=== PATIENT | male | born 1945 | race Caucasian/White ===

== ENCOUNTER 2020-09-02 13:10 | Emergency (ER) | payer MEDICARE, BC ==
[2020-09-02] MEDS ORDERED: Acetaminophen 325 MG Tab PO ONE (13:47)
--- NOTE | 2020-09-02 13:49 | EDM.PDOC ---
ED HPI GENERAL MEDICAL PROBLEM - General Chief Complaint: Respiratory Problem Stated Complaint: COUGH/CONGESTED/FEVER Time Seen by Provider: 09/02/20 13:36 Source of Information: Reports: Patient History Limitations: Reports: No Limitations - History of Present Illness INITIAL COMMENTS - FREE TEXT/NARRATIVE: 74-year-old male presents to the ED with a 2-day history of productive cough of slightly yellowish tinged mucus which he calls quite slimy. Associated fever chills and rigors yesterday afternoon and last evening. So far not today. Decreased appetite. Feels a little short of breath. Mostly on exertion. Associated fatigue and lack of energy. Patient did have COVID-19 screen vaccination [place] in March and April of this year. Of note the patient received his last dose of chemotherapy for a lymphoma or leukemia patient was not clear. He states the cancer was in his lymph nodes but in turn called it a leukemia. He has a Port-A-Cath in his right upper anterior chest. Patient had previous heart beam radiation to his prostate in 2012 for cancer of the prostate with PSA staying in the normal range. Patient still smokes cigarettes 3 to 5/day. He smoked for over 55 years. Denies any hemoptysis. He denies any pleuritic chest pain. Onset: Sudden Onset Date: 08/31/20 Duration: Day(s):, Constant, Getting Worse Location: Reports: Chest (Productive sounding cough.) Quality: Reports: Other (Mild generalized myalgia.) Severity: Moderate Improves with: Reports: None Worsens with: Reports: Other Context: Reports: Other (Spontaneous onset 2-1/2 days ago.). Denies: Activity, Exercise (Seems to be worse on exertion.), Lifting, Sick Contact, Trauma Associated Symptoms: Reports: Cough, cough w sputum (Yellowish sputum.), Fever/Chills (More noted yesterday), Loss of Appetite, Malaise (Creased appetite.), Shortness of Breath, Weakness (Generalized.). Denies: Confusion, Chest Pain, Diaphoresis, Headaches ( Fatigue.), Nausea/Vomiting, Rash, Seizure, Syncope Treatments K 12 PRINCIPAL: Reports: Acetaminophen - Related Data Allergies Allergy/AdvReac Type Severity Reaction Status Date / Time No Known Allergies Allergy Verified 02/21/15 14:53 Home Meds: Home Meds Calcium Carbonate [Calcium] 3 tab PO DAILY 02/28/15 [History] Loperamide HCl [Imodium A-D] 1 tab PO BID 02/28/15 [History] Lutein/Minerals/Vit A,C & E [Ocuvite] 1 tab PO DAILY 02/28/15 [History] Multivitamin with Minerals [Multiple Vitamin] 1 tab PO DAILY 02/28/15 [History] Primidone [Mysoline] 2 tab PO DAILY 02/28/15 [History] Propranolol [Inderal LA] 1 tab PO DAILY 02/28/15 [History] levoFLOXacin [Levaquin] 500 mg PO DAILY #7 tab 09/02/20 [Rx] Past Medical History Cardiovascular History: Reports: Hypertension Respiratory History: Reports: Bronchitis, Recurrent, COPD, Other (See Below) (Patient might of had pneumonia back in 1967.) Gastrointestinal History: Reports: Chronic Diarrhea (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 He was treated with heart beam radiation in 2012. This created urinary urgency and frequency and proctitis with chronic diarrhea.) Musculoskeletal History: Reports: Osteoarthritis (Knees hips L-spine neck.) Oncologic (Cancer) History: Reports: Leukemia (Patient is not sure if he has leukemia or non-Hodgkin's lymphoma which is being treated with chemotherapy. Last treatment was in May of this last year. He is due for oncology visit later this month.), Prostate (Prostate cancer diagnosed by way of TURP in 2012. He was treated with heart beam radiation. This left him with some urgency and urinary incontinence and radiation-induced proctitis.) - Past Surgical History Cardiovascular Surgical History: Reports: Other (See Below) (Port-A-Cath right upper anterior chest.) GI Surgical History: Reports: Other (See Below) (Patient underwent a right inguinal herniorrhaphy with mesh placement many years ago.) Social & Family History - Living Situation & Occupation Living situation: Reports: Occupation: Retired ED ROS GENERAL - Review of Systems Review Of Systems: See Below Constitutional: Reports: Fever, Chills, Malaise, Weakness, Fatigue, Decreased Appetite. Denies: Weight Loss HEENT: Reports: Glasses Respiratory: Reports: Shortness of Breath, Cough, Sputum. Denies: Wheezing, Pleuritic Chest Pain, Hemoptysis (Yellow sputum production for the last 2 days.) Cardiovascular: Reports: Blood Pressure Problem, Dyspnea on Exertion (Trace lower extremities chronically.), Edema. Denies: Chest Pain, Claudication, Lightheadedness, Orthopnea, Palpitations Endocrine: Reports: Fatigue GI/Abdominal: Reports: Diarrhea (History of chronic diarrhea usually 2-4 times daily since heart beam radiation to his prostate in 2013. Patient has radiation to his proctitis.), Decreased Appetite : Reports: Frequency, Incontinence (Occasional urge incontinence.), Urgency Musculoskeletal: Reports: Neck Pain, Shoulder Pain, Back Pain, Joint Pain (He is and hips at times from osteoarthritic change.) Skin: Reports: No Symptoms Neurological: Reports: No Symptoms Psychiatric: Reports: No Symptoms Hematologic/Lymphatic: Reports: No Symptoms Immunologic: Reports: No Symptoms ED EXAM, GENERAL - Physical Exam Exam: See Below Exam Limited By: No Limitations General Appearance: Alert, WD/WN, No Apparent Distress, Other (Patient does feel warm to palpation. Recorded temperature is 36.8 but he is warmer than this. Heart rate was 59 and sinus. Respiratory is 20 with O2 sats of 95% room air. BP 131/60.) Eye Exam: Bilateral Eye: Normal Inspection, PERRL Throat/Mouth: Normal Inspection, Normal Lips, Normal Teeth, Normal Oropharynx Head: Atraumatic, Normocephalic Neck: Normal Inspection, Supple, Non-Tender, Full Range of Motion. No: Lymphadenopathy (L), Lymphadenopathy (R) Respiratory/Chest: No Respiratory Distress, No Accessory Muscle Use, Decreased Breath Sounds (Mildly decreased at both posterior lung weeks by about 15%.), Rhonchi (Right lower lobe heard best posteriorly.), Wheezing (Very occasional expiratory wheeze on expiration.). No: Lungs Clear, Normal Breath Sounds, Rales Cardiovascular: Regular Rate, Rhythm, No Gallop, No Murmur, No Rub. No: Normal Peripheral Pulses, No Edema Peripheral Pulses: 2+: Carotid (L), Carotid (R), Posterior Tibial (L), Posterior Tibial (R), Dorsalis Pedis (L), Dorsalis Pedis (R) GI/Abdominal: Normal Bowel Sounds, Soft, Non-Tender, No Organomegaly, No Mass, Pelvis Stable, Distended (Mild. Mild aerophagia.), Other (Mildly tympany to percussion.) Back Exam: Normal Inspection, Decreased Range of Motion. No: CVA Tenderness (L), CVA Tenderness (R), Muscle Spasm, Paraspinal Tenderness, Vertebral Tenderness Extremities: Normal Inspection, Pedal Edema (Trace edema at the ankles bilaterally.) Neurological: Alert, Oriented, CN II-XII Intact, Normal Cognition Psychiatric: Normal Affect, Normal Mood Skin Exam: Warm, Dry, Intact, Normal Color, No Rash #1 Interpretation EKG Date: 09/02/20 Time: 14:31 Rhythm: Other Rate (Beats/Min): 58 [place]: LAD-Left [place] Deviation (Minimal left axis deviation -5 degrees) P-Wave: Present (First-degree AV block with left atrial hypertrophy) QRS: Other (Decreased voltage limb leads) ST-T: Normal QT: Normal EKG Interpretation Comments: Abnormal ECG Course - Vital Signs Last Recorded V/S: Last Vital Signs Temp 36.8 C 09/02/20 15:44 Pulse 56 L 09/02/20 15:44 Resp 18 09/02/20 15:44 BP 111/53 L 09/02/20 15:44 Pulse Ox 95 09/02/20 15:44 - Orders/Labs/Meds Orders: Active Orders 24 hr Category Date Time Status CULTURE BLOOD [BC] Stat Lab 09/02/20 14:15 Received CULTURE BLOOD [BC] Stat Lab 09/02/20 14:28 Received Blood Culture x2 Reflex Set [OM.PC] Stat Oth 09/02/20 13:48 Ordered Labs: Laboratory Tests 09/02/20 09/02/20 09/02/20 Range/Units 13:30 14:15 14:15 WBC 7.17 (4.23-9.07) K/mm3 RBC 4.05 L (4.63-6.08) M/mm3 Hgb 13.3 L (13.7-17.5) gm/dl Hct 39.6 L (40.1-51.0) % MCV 97.8 H (79.0-92.2) fl MCH 32.8 H (25.7-32.2) pg MCHC 33.6 (32.2-35.5) g/dl RDW Std Deviation 48.1 H (35.1-43.9) fL Plt Count 151 L (163-337) K/mm3 MPV 10.5 (9.4-12.3) fl Neutrophils % (Manual) 25 L (40-60) % Band Neutrophils % 1 (0-10) % Lymphocytes % (Manual) 43 H (20-40) % Atypical Lymphs % 3 % Monocytes % (Manual) 24 H (2-10) % Eosinophils % (Manual) 4 (0.8-7.0) % Basophils % (Manual) 0 L (0.2-1.2) Platelet Estimate Adequate RBC Morph Comment Normal PT (9.7-12.0) SECONDS INR APTT (21.7-31.4) SECONDS Sodium 140 (136-145) mEq/L Potassium 3.8 (3.5-5.1) mEq/L Chloride 103 (98-107) mEq/L Carbon Dioxide 25 (21-32) mEq/L Anion Gap 15.8 H (5-15) BUN 8 (7-18) mg/dL Creatinine 0.8 (0.7-1.3) mg/dL Est Cr Clr Drug Dosing 79.56 mL/min Estimated GFR (MDRD) > 60 (>60) mL/min BUN/Creatinine Ratio 10.0 L (14-18) Glucose 84 (70-99) mg/dL Lactic Acid (0.4-2.0) mmol/L Calcium 8.7 (8.5-10.1) mg/dL Magnesium 2.1 (1.8-2.4) mg/dL Total Bilirubin 0.6 (0.2-1.0) mg/dL AST 21 (15-37) U/L ALT 18 (16-63) U/L Alkaline Phosphatase 101 (46-116) U/L Troponin I < 0.017 (0.00-0.056) ng/mL C-Reactive Protein 17.7 H* (<1.0) mg/dL NT-Pro-B Natriuret Pep (0-125) pg/mL Total Protein 6.4 (6.4-8.2) g/dl Albumin 3.7 (3.4-5.0) g/dl Globulin 2.7 gm/dL Albumin/Globulin Ratio 1.4 (1-2) Urine Color (Yellow) Urine Appearance (Clear) Urine pH (5.0-8.0) Ur Specific [place] (1.005-1.030) Urine Protein (Negative) Urine Glucose (UA) (Negative) Urine Ketones (Negative) Urine Occult Blood (Negative) Urine Nitrite (Negative) Urine Bilirubin (Negative) Urine Urobilinogen (0.2-1.0) Ur Leukocyte Esterase (Negative) Urine RBC (0-5) /hpf Urine WBC (0-5) /hpf Ur Squamous Epith Cells (0-5) /hpf Urine Bacteria (FEW) /hpf Urine Mucus (FEW) /hpf SARS-CoV-2 RNA (LYRIC) Negative (NEGATIVE) 09/02/20 09/02/20 09/02/20 Range/Units 14:15 14:15 14:15 WBC (4.23-9.07) K/mm3 RBC (4.63-6.08) M/mm3 Hgb (13.7-17.5) gm/dl Hct (40.1-51.0) % MCV (79.0-92.2) fl MCH (25.7-32.2) pg MCHC (32.2-35.5) g/dl RDW Std Deviation (35.1-43.9) fL Plt Count (163-337) K/mm3 MPV (9.4-12.3) fl Neutrophils % (Manual) (40-60) % Band Neutrophils % (0-10) % Lymphocytes % (Manual) (20-40) % Atypical Lymphs % % Monocytes % (Manual) (2-10) % Eosinophils % (Manual) (0.8-7.0) % Basophils % (Manual) (0.2-1.2) Platelet Estimate RBC Morph Comment PT 11.0 (9.7-12.0) SECONDS INR 1.03 APTT 29.8 (21.7-31.4) SECONDS Sodium (136-145) mEq/L Potassium (3.5-5.1) mEq/L Chloride (98-107) mEq/L Carbon Dioxide (21-32) mEq/L Anion Gap (5-15) BUN (7-18) mg/dL Creatinine (0.7-1.3) mg/dL Est Cr Clr Drug Dosing mL/min Estimated GFR (MDRD) (>60) mL/min BUN/Creatinine Ratio (14-18) Glucose (70-99) mg/dL Lactic Acid 0.8 (0.4-2.0) mmol/L Calcium (8.5-10.1) mg/dL Magnesium (1.8-2.4) mg/dL Total Bilirubin (0.2-1.0) mg/dL AST (15-37) U/L ALT (16-63) U/L Alkaline Phosphatase (46-116) U/L Troponin I (0.00-0.056) ng/mL C-Reactive Protein (<1.0) mg/dL NT-Pro-B Natriuret Pep 708 H (0-125) pg/mL Total Protein (6.4-8.2) g/dl Albumin (3.4-5.0) g/dl Globulin gm/dL Albumin/Globulin Ratio (1-2) Urine Color (Yellow) Urine Appearance (Clear) Urine pH (5.0-8.0) Ur Specific [place] (1.005-1.030) Urine Protein (Negative) Urine Glucose (UA) (Negative) Urine Ketones (Negative) Urine Occult Blood (Negative) Urine Nitrite (Negative) Urine Bilirubin (Negative) Urine Urobilinogen (0.2-1.0) Ur Leukocyte Esterase (Negative) Urine RBC (0-5) /hpf Urine WBC (0-5) /hpf Ur Squamous Epith Cells (0-5) /hpf Urine Bacteria (FEW) /hpf Urine Mucus (FEW) /hpf SARS-CoV-2 RNA (LYRIC) (NEGATIVE) 09/02/20 Range/Units 14:35 WBC (4.23-9.07) K/mm3 RBC (4.63-6.08) M/mm3 Hgb (13.7-17.5) gm/dl Hct (40.1-51.0) % MCV (79.0-92.2) fl MCH (25.7-32.2) pg MCHC (32.2-35.5) g/dl RDW Std Deviation (35.1-43.9) fL Plt Count (163-337) K/mm3 MPV (9.4-12.3) fl Neutrophils % (Manual) (40-60) % Band Neutrophils % (0-10) % Lymphocytes % (Manual) (20-40) % Atypical Lymphs % % Monocytes % (Manual) (2-10) % Eosinophils % (Manual) (0.8-7.0) % Basophils % (Manual) (0.2-1.2) Platelet Estimate RBC Morph Comment PT (9.7-12.0) SECONDS INR APTT (21.7-31.4) SECONDS Sodium (136-145) mEq/L Potassium (3.5-5.1) mEq/L Chloride (98-107) mEq/L Carbon Dioxide (21-32) mEq/L Anion Gap (5-15) BUN (7-18) mg/dL Creatinine (0.7-1.3) mg/dL Est Cr Clr Drug Dosing mL/min Estimated GFR (MDRD) (>60) mL/min BUN/Creatinine Ratio (14-18) Glucose (70-99) mg/dL Lactic Acid (0.4-2.0) mmol/L Calcium (8.5-10.1) mg/dL Magnesium (1.8-2.4) mg/dL Total Bilirubin (0.2-1.0) mg/dL AST (15-37) U/L ALT (16-63) U/L Alkaline Phosphatase (46-116) U/L Troponin I (0.00-0.056) ng/mL C-Reactive Protein (<1.0) mg/dL NT-Pro-B Natriuret Pep (0-125) pg/mL Total Protein (6.4-8.2) g/dl Albumin (3.4-5.0) g/dl Globulin gm/dL Albumin/Globulin Ratio (1-2) Urine Color Yellow (Yellow) Urine Appearance Clear (Clear) Urine pH 7.0 (5.0-8.0) Ur Specific [place] 1.020 (1.005-1.030) Urine Protein Negative (Negative) Urine Glucose (UA) Negative (Negative) Urine Ketones Negative (Negative) Urine Occult Blood Negative (Negative) Urine Nitrite Negative (Negative) Urine Bilirubin Negative (Negative) Urine Urobilinogen 0.2 (0.2-1.0) Ur Leukocyte Esterase Negative (Negative) Urine RBC 0-5 (0-5) /hpf Urine WBC 0-5 (0-5) /hpf Ur Squamous Epith Cells 0-5 (0-5) /hpf Urine Bacteria Few (FEW) /hpf Urine Mucus Few (FEW) /hpf SARS-CoV-2 RNA (LYRIC) (NEGATIVE) Meds: Medications Discontinued Medications Generic Name Dose Route Start Last Admin Trade Name Freq PRN Reason Stop Dose Admin Acetaminophen 650 mg 09/02/20 13:47 09/02/20 14:31 Acetaminophen 325 Mg Tab PO 09/02/20 13:48 650 mg ONETIME ONE Administration Heparin Sodium (Porcine) 500 units 09/02/20 15:58 09/02/20 16:06 Heparin Sodium 100 Units/Ml 5 Ml Syringe FLUSH 500 units ASDIRECTED PRN Administration deaccess port Dextrose/Sodium Chloride 1,000 mls @ 150 mls/hr 09/02/20 14:00 09/02/20 14:31 Dextrose 5%-Normal Saline IV 150 mls/hr ASDIRECTED MANOJ Administration Ceftriaxone Sodium 2 gm/ 100 mls @ 200 mls/hr 09/02/20 14:48 09/02/20 14:56 Sodium Chloride IV 09/02/20 15:17 200 mls/hr ONETIME ONE Administration Levofloxacin 500 mg 09/02/20 15:53 09/02/20 16:03 Levofloxacin 250 Mg Tab PO 09/02/20 15:54 500 mg ONETIME ONE Administration - Radiology Interpretation Free Text/Narrative:: 74-year-old male presents to the ED for evaluation of acute onset of fever and chills with associated rigors yesterday x2. Productive cough with yellowish sputum x2 days. Associated mild shortness of breath and weakness. Patient had his Covid vaccination given in March and April of this year --a. Patient received last dose of chemotherapy/leukemia or lymphoma. Patient said leukemia but he said the cancer was in his lymph nodes. Therefore diagnosis is unclear. He is due for next oncology appointment later this month. At present he has a productive cough of yellowish sputum without any hemoptysis. He still smokes 3 to 5 cigarettes daily. Mild history of COPD but not oxygen dependent. Patient does have a fever clinically. Plan portable chest x-ray to be done. Covid screen will be done as well. Blood cultures x2. Will be given Tylenol 6 650 mg by mouth for fever relief. IV will be D5 normal saline at 150 mils per hour. - Re-Assessments/Exams Free Text/Narrative Re-Assessment/Exam: 09/02/20 14:47 White count is still normal at 7.17. Differential pending. Hemoglobin is 13.3 with hematocrit of 39.6. MCV is mildly elevated 97.8. Platelet count is low normal 151,000. COVID-19 screen is negative. Portable chest x-ray has been completed and reveals very mild cardiomegaly. Right pulmonary artery is mildly prominent. Lungs overall appear clear with perhaps minimal fibrosis right lower lobe. Port-A-Cath right upper anterior chest appreciated. I advised the patient that his chest x-ray was negative for any signs of pneumonia. Plan will be to give him 2 g of Rocephin intravenously. He has dropped his off with his son here in town and then they went to a dance. Therefore there is no one available to go to the drugstore while it is still open today. He prefers that I send the prescription to [facility] in [facility] and they usually mail out his medications. The plan will be to place him on Levaquin 500 mg once daily for 8 days with the first time to be taken tomorrow morning. 09/02/20 15:38 patient has completed Rocephin 2 g IV. Patient drove himself to the hospital and thus he will be discharged at this time. He plans on driving back to [place] this afternoon. I did speak with the pharmacist at [facility] in [place] outpatient pharmacy and we faxed a prescription for Lev aquin 500 mg once daily for 7 days to that institution. Discharged home with 1 Levaquin 500 mg tablet to take first thing tomorrow morning. Note radiology interpreted his chest x-ray is suggesting there might be a very minimal infiltrate right upper lobe above his Port-A-Cath. Departure - Departure Time of Disposition: 15:54 Disposition: Home, Self-Care 01 Condition: Fair Clinical Impression: Acute bronchitis Qualifiers: Bronchitis organism: other organism Qualified Code(s): J20.8 - Acute bronchitis due to other specified organisms - Discharge Information *PRESCRIPTION DRUG MONITORING PROGRAM REVIEWED*: Not Applicable *COPY OF PRESCRIPTION DRUG MONITORING REPORT IN PATIENT ANTHONY: Not Applicable Prescriptions: levoFLOXacin [Levaquin] 500 mg PO DAILY #7 tab Referrals: Vilma Mills MD [Primary Care Provider] - Forms: ED Department Discharge Additional Instructions: Evaluation in the emergency room today in regards to development of fever and chills with associated productive cough over the last 2 days. COVID-19 screen in the ED is negative. Chest x-ray done in the ED does not reveal any signs of pneumonia yet. Clinically you have bronchitis with suspect bacterial infection right lower lobe of lung. You were treated with first dose of antibiotic in the emergency room intravenously IV Rocephin 2 g. You will need to start oral antibiotic tomorrow Levaquin 500 mg once daily. A prescription has been sent to [facility] in [place] and they will put your medication in the mail tomorrow. Is unclear when you will get it but usually within 48 hours. You will need to take Levaquin 500 mg once daily for the next 7 days to clear up infection right lung. Of note do not take this medication with vitamins or your calcium supplement. Must be several hours in between taking these 2 together. Continue Motrin 600 mg every 6 hours or Tylenol 650 mg every 4 hours for fever relief. Return to medical care if condition worsens over the next 48 hours. Sepsis Event Note (ED) - Evaluation Sepsis Screening Result: No Definite Risk - Focused Exam Vital Signs: Vital Signs Temp Pulse Resp BP Pulse Ox 09/02/20 15:44 36.8 C 56 L 18 111/53 L 95 09/02/20 13:28 36.8 C 59 L 20 131/60 95 - My Orders Last 24 Hours: My Active Orders 09/02/20 13:48 Blood Culture x2 Reflex Set [OM.PC] Stat 09/02/20 14:15 CULTURE BLOOD [BC] Stat 09/02/20 14:28 CULTURE BLOOD [BC] Stat - Assessment/Plan Last 24 Hours: My Active Orders 09/02/20 13:48 Blood Culture x2 Reflex Set [OM.PC] Stat 09/02/20 14:15 CULTURE BLOOD [BC] Stat 09/02/20 14:28 CULTURE BLOOD [BC] Stat
[2020-09-02] MEDS ORDERED: Dextrose 5%-0.9% NaCl 1,000 ML IV SCH (14:00)
[2020-09-02] MEDS ORDERED: cefTRIAXone 2 GM in Sodium Chloride 0.9% 100 ML IV ONE (14:48)
--- NOTE | 2020-09-02 15:24 | CR ---
Chest: Portable view of the chest was obtained. Comparison: No previous study is available. Tubular density is seen within the right lung base believed to be artifact. Right-sided infusion catheter is seen with tip lying within the region of the superior vena cava. Slight area of increased density is seen within the right upper chest. Difficult to exclude minimal area of pneumonia. Lungs otherwise are clear. Bony structures are grossly intact. Impression: 1. Questionable small area of pneumonia is seen within the right upper chest. 2. Other findings as noted above which are felt to be chronic. Diagnostic code #3
[2020-09-02 15:49] VITALS: BP 111/53; PULSE 56
[2020-09-02] MEDS ORDERED: Levofloxacin 250 MG Tab PO ONE (15:53)
== END 2020-09-02 16:15 | disposition home or self-care (01) ==
LOC: JD.ED 13:10
DX: J20.8 Acute bronchitis due to other specified organisms (principal); I10 Essential (primary) hypertension; Z20.822 Contact with and (suspected) exposure to COVID-19; Z79.899 Other long term (current) drug therapy; R06.02 Shortness of breath
CPT/HCPCS: 36415; 71045; 80053; 81001; 83605; 83735; 83880; 84484; 85007; 85027; 85610; 85730; 86140; 87040; 93005; 96365; 99284; A9270; J0696; J1642; J7042; U0002; 93010; 99283

== ENCOUNTER 2022-02-07 09:18 | Inpatient (IN) | payer MEDICARE, BC ==
[2022-02-07] MEDS ORDERED: Lactated Ringers 1,000 ML IV ONE (10:12)
[2022-02-07] MEDS ORDERED: Piperacillin/Tazobactam 4.5 GM in Sodium Chloride 0.9% 100 ML IV ONE (10:12)
[2022-02-07] MEDS ORDERED: Sodium Chloride 0.9% 1,000 ML IV ONE (11:06)
[2022-02-07] MEDS ORDERED: Iopamidol 755 Mg/ML 100 ML Bottle IVPUSH ONE (11:34)
[2022-02-07] MEDS ORDERED: Sodium Chloride 0.9% 10 ML Syringe FLUSH ONE (11:34)
[2022-02-07] MEDS ORDERED: Sodium Chloride 0.9% 100 ML IV SCH (11:45)
[2022-02-07 17:00] LABS: CORONAVIRUS COVID-19 NAA NEGATIVE (NEGATIVE)
[2022-02-07] MEDS ORDERED: Zolpidem 5 MG Tab PO PRN (17:21)
[2022-02-07] MEDS ORDERED: Pantoprazole 40 MG Vial ONE (17:21)
[2022-02-07] MEDS ORDERED: LORazepam 2 MG/ML SDV IV PRN (17:21)
[2022-02-07] MEDS ORDERED: Dexamethasone 4 MG Tab PO SCH (17:30)
[2022-02-07] MEDS ORDERED: Pantoprazole 40 MG Vial IV ONE (17:45)
[2022-02-07] MEDS ORDERED: Furosemide 40 MG/4 ML VIAL IVPUSH SCH (17:45)
[2022-02-07] MEDS: Enoxaparin 40 MG/0.4 ML Syringe SUBCUT SCH (18:38)
[2022-02-07] MEDS ORDERED: Furosemide 20 MG/2 ML VIAL IVPUSH ONE (23:30)
[2022-02-08] MEDS: Loperamide 2 MG Cap PO SCH ×6 (04:56→21:39)
[2022-02-08] MEDS ORDERED: predniSONE 10 MG Tab PO SCH (07:00)
[2022-02-08] MEDS: Enoxaparin 40 MG/0.4 ML Syringe SUBCUT SCH (08:31)
[2022-02-08] MEDS: Acetaminophen 325 MG Tab PO PRN (08:40)
[2022-02-08] MEDS ORDERED: Nicotine 7 MG/24 Hr Patch TRDERM SCH (09:00)
[2022-02-08] MEDS: Piperacillin/Tazobactam 4.5 GM in Sodium Chloride 0.9% 100 ML IV SCH (17:49)
[2022-02-08] MEDS: Albuterol/Ipratropium 3.0-0.5 MG/3 ML Neb Soln NEB PRN ×2 (18:08→21:59)
[2022-02-08] MEDS: Furosemide 20 MG/2 ML VIAL IVPUSH SCH (21:39)
[2022-02-09] MEDS: Piperacillin/Tazobactam 4.5 GM in Sodium Chloride 0.9% 100 ML IV SCH ×4 (00:58→18:28)
[2022-02-09] MEDS ORDERED: Loperamide 2 MG Cap PO PRN (06:00)
[2022-02-09] MEDS: predniSONE 20 MG Tab PO SCH (07:03)
[2022-02-09] MEDS: Albuterol/Ipratropium 3.0-0.5 MG/3 ML Neb Soln NEB PRN ×3 (09:17→20:56)
[2022-02-09] MEDS: Propranolol 60 MG Cap.ER PO SCH (10:00)
[2022-02-09] MEDS: Furosemide 20 MG/2 ML VIAL IVPUSH SCH (10:01)
[2022-02-09] MEDS: Enoxaparin 40 MG/0.4 ML Syringe SUBCUT SCH (10:03)
[2022-02-09] MEDS: Loperamide 2 MG Cap PO SCH ×2 (14:13→21:57)
[2022-02-10] MEDS: Piperacillin/Tazobactam 4.5 GM in Sodium Chloride 0.9% 100 ML IV SCH ×3 (02:25→18:23)
[2022-02-10] MEDS: Albuterol/Ipratropium 3.0-0.5 MG/3 ML Neb Soln NEB PRN ×4 (06:27→20:57)
[2022-02-10] MEDS: predniSONE 20 MG Tab PO SCH (06:46)
[2022-02-10] MEDS: Loperamide 2 MG Cap PO SCH ×3 (06:46→22:00)
[2022-02-10] MEDS: Acetaminophen 325 MG Tab PO PRN (09:57)
[2022-02-10] MEDS: Propranolol 60 MG Cap.ER PO SCH (09:58)
[2022-02-10] MEDS: Enoxaparin 40 MG/0.4 ML Syringe SUBCUT SCH (09:58)
[2022-02-10] MEDS: Albuterol/Ipratropium 3.0-0.5 MG/3 ML Neb Soln NEB SCH (15:50)
[2022-02-10] MEDS ORDERED: Sodium Chloride 0.9% 1,000 ML IV SCH (18:15)
[2022-02-11] MEDS: Piperacillin/Tazobactam 4.5 GM in Sodium Chloride 0.9% 100 ML IV SCH ×3 (03:00→18:15)
[2022-02-11] MEDS: Albuterol/Ipratropium 3.0-0.5 MG/3 ML Neb Soln NEB PRN (05:53)
[2022-02-11] MEDS ORDERED: predniSONE 20 MG Tab PO SCH (07:00)
[2022-02-11] MEDS: Loperamide 2 MG Cap PO SCH ×3 (07:01→22:12)
[2022-02-11] MEDS ORDERED: Albuterol 0.083% 2.5 MG/3 ML Neb Soln NEB PRN (08:33)
[2022-02-11] MEDS ORDERED: Albuterol/Ipratropium 3.0-0.5 MG/3 ML Neb Soln NEB SCH (09:00)
[2022-02-11] MEDS: Enoxaparin 40 MG/0.4 ML Syringe SUBCUT SCH (09:06)
[2022-02-11] MEDS: Propranolol 60 MG Cap.ER PO SCH (09:06)
[2022-02-11] MEDS: Acetaminophen 325 MG Tab PO PRN ×2 (09:19→13:56)
[2022-02-11] MEDS ORDERED: VANCOmycin 1.25 GM/250 ML 1.25 GM in Premix Bag 1 BAG IV ONE (12:00)
[2022-02-11] MEDS ORDERED: Sodium Chloride 0.9% 250 ML IV ONE (12:30)
[2022-02-11] MEDS: methylPREDNISolone Sodium Succinate 40 MG/1 ML SDV IVPUSH SCH (12:44)
[2022-02-11] MEDS ORDERED: Sodium Chloride 0.9% 1,000 ML IV SCH (13:00)
[2022-02-11 13:46] LABS: BORDETELLA PARAPERT IS1001 Not Detected (Not Detected)
[2022-02-11] MEDS: Albuterol/Ipratropium 3.0-0.5 MG/3 ML Neb Soln NEB SCH ×2 (13:56→21:32)
[2022-02-12] MEDS: methylPREDNISolone Sodium Succinate 40 MG/1 ML SDV IVPUSH SCH ×3 (00:52→23:30)
[2022-02-12] MEDS: Piperacillin/Tazobactam 4.5 GM in Sodium Chloride 0.9% 100 ML IV SCH ×3 (02:20→18:24)
[2022-02-12] MEDS: Albuterol/Ipratropium 3.0-0.5 MG/3 ML Neb Soln NEB SCH ×3 (04:59→20:46)
[2022-02-12] MEDS: Loperamide 2 MG Cap PO SCH ×3 (06:22→23:30)
[2022-02-12] MEDS: VANCOmycin 1.25 GM/250 ML 1.25 GM in Premix Bag 1 BAG IV SCH (07:49)
[2022-02-12] MEDS: Propranolol 60 MG Cap.ER PO SCH (09:40)
[2022-02-12] MEDS: Enoxaparin 40 MG/0.4 ML Syringe SUBCUT SCH (09:41)
[2022-02-12] MEDS ORDERED: Furosemide 20 MG/2 ML VIAL IVPUSH ONE (10:03)
[2022-02-12] MEDS: Potassium Chloride 20 MEQ Tab.ER PO SCH ×2 (12:15→23:30)
[2022-02-13] MEDS: VANCOmycin 1.25 GM/250 ML 1.25 GM in Premix Bag 1 BAG IV SCH (00:35)
[2022-02-13] MEDS: Piperacillin/Tazobactam 4.5 GM in Sodium Chloride 0.9% 100 ML IV SCH ×3 (02:14→18:52)
[2022-02-13] MEDS: Albuterol/Ipratropium 3.0-0.5 MG/3 ML Neb Soln NEB SCH ×2 (05:51→20:46)
[2022-02-13] MEDS: Loperamide 2 MG Cap PO SCH ×3 (06:33→22:58)
[2022-02-13] MEDS: Propranolol 60 MG Cap.ER PO SCH (09:54)
[2022-02-13] MEDS: Enoxaparin 40 MG/0.4 ML Syringe SUBCUT SCH (09:54)
[2022-02-13] MEDS: Potassium Chloride 20 MEQ Tab.ER PO SCH (09:55)
[2022-02-13] MEDS: methylPREDNISolone Sodium Succinate 40 MG/1 ML SDV IVPUSH SCH ×2 (12:42→22:59)
[2022-02-13] MEDS ORDERED: VANCOmycin 1.25 GM/250 ML 1.25 GM in Premix Bag 1 BAG IV SCH (23:00)
[2022-02-14] MEDS: Piperacillin/Tazobactam 4.5 GM in Sodium Chloride 0.9% 100 ML IV SCH ×3 (02:42→19:41)
[2022-02-14] MEDS: Albuterol/Ipratropium 3.0-0.5 MG/3 ML Neb Soln NEB SCH ×3 (05:42→20:46)
[2022-02-14] MEDS: VANCOmycin 1.25 GM/250 ML 1.25 GM in Premix Bag 1 BAG IV SCH ×3 (06:37→23:00)
[2022-02-14] MEDS: Loperamide 2 MG Cap PO SCH ×3 (06:48→23:01)
[2022-02-14] MEDS ORDERED: Furosemide 20 MG/2 ML VIAL IVPUSH ONE (09:11)
[2022-02-14] MEDS: Propranolol 60 MG Cap.ER PO SCH (09:48)
[2022-02-14] MEDS: Enoxaparin 40 MG/0.4 ML Syringe SUBCUT SCH (09:48)
[2022-02-14] MEDS: methylPREDNISolone Sodium Succinate 40 MG/1 ML SDV IVPUSH SCH ×2 (11:55→23:04)
[2022-02-15] MEDS: Piperacillin/Tazobactam 4.5 GM in Sodium Chloride 0.9% 100 ML IV SCH ×3 (02:35→18:52)
[2022-02-15] MEDS: Albuterol/Ipratropium 3.0-0.5 MG/3 ML Neb Soln NEB SCH ×3 (06:15→20:18)
[2022-02-15] MEDS: Loperamide 2 MG Cap PO SCH ×4 (07:51→23:35)
[2022-02-15] MEDS: Propranolol 60 MG Cap.ER PO SCH (09:55)
[2022-02-15] MEDS: VANCOmycin 1.25 GM/250 ML 1.25 GM in Premix Bag 1 BAG IV SCH ×2 (09:55→22:48)
[2022-02-15] MEDS: Enoxaparin 40 MG/0.4 ML Syringe SUBCUT SCH (09:56)
[2022-02-15] MEDS: methylPREDNISolone Sodium Succinate 40 MG/1 ML SDV IVPUSH SCH (11:54)
[2022-02-16] MEDS: methylPREDNISolone Sodium Succinate 40 MG/1 ML SDV IVPUSH SCH ×2 (00:21→12:32)
[2022-02-16] MEDS: Piperacillin/Tazobactam 4.5 GM in Sodium Chloride 0.9% 100 ML IV SCH ×4 (00:31→18:50)
[2022-02-16] MEDS: Albuterol/Ipratropium 3.0-0.5 MG/3 ML Neb Soln NEB SCH ×3 (06:11→20:25)
[2022-02-16] MEDS: Loperamide 2 MG Cap PO SCH ×3 (06:52→22:54)
[2022-02-16] MEDS: Propranolol 60 MG Cap.ER PO SCH (08:39)
[2022-02-16] MEDS: Enoxaparin 40 MG/0.4 ML Syringe SUBCUT SCH (08:40)
[2022-02-16] MEDS: VANCOmycin 1.25 GM/250 ML 1.25 GM in Premix Bag 1 BAG IV SCH ×2 (10:16→21:28)
[2022-02-17] MEDS: methylPREDNISolone Sodium Succinate 40 MG/1 ML SDV IVPUSH SCH ×2 (01:01→12:35)
[2022-02-17] MEDS: Piperacillin/Tazobactam 4.5 GM in Sodium Chloride 0.9% 100 ML IV SCH ×2 (01:01→10:34)
[2022-02-17] MEDS: Albuterol/Ipratropium 3.0-0.5 MG/3 ML Neb Soln NEB SCH (06:15)
[2022-02-17] MEDS: Loperamide 2 MG Cap PO SCH ×3 (06:57→13:34)
[2022-02-17] MEDS: Propranolol 60 MG Cap.ER PO SCH (08:58)
[2022-02-17] MEDS: Enoxaparin 40 MG/0.4 ML Syringe SUBCUT SCH (08:58)
[2022-02-17] MEDS: VANCOmycin 1.25 GM/250 ML 1.25 GM in Premix Bag 1 BAG IV SCH (09:00)
[2022-02-17] MEDS ORDERED: Furosemide 40 MG/4 ML VIAL IVPUSH SCH (09:30)
[2022-02-17] MEDS ORDERED: Sodium Chloride 0.9% 10 ML Syringe FLUSH PRN (14:30)
[2022-02-17] MEDS ORDERED: Iopamidol 612 MG/ML 100 ML Bottle IVPUSH ONE (14:30)
[2022-02-17 15:07] VITALS: BP 118/54; PULSE 69
== END 2022-02-17 17:11 | DRG 196 ==
LOC: JD.ED 09:18 → JD.MS 16:23 → JD.ICU 02-17 12:56
PROVIDERS: ADMIT Pediatrics; ATTEND Internal Medicine Hematology & Oncology
PROC: 5A09357 Assistance with Respiratory Ventilation, Less than 24 Consecutive Hours, Continuous Positive Airway Pressure (ICD-10-PCS; principal; 2022-02-07)
DX: J84.116 Cryptogenic organizing pneumonia (principal); A41.9 Sepsis, unspecified organism; J96.01 Acute respiratory failure with hypoxia; Z85.46 Personal history of malignant neoplasm of prostate; C91.10 Chronic lymphocytic leukemia of B-cell type not having achieved remission; Z92.3 Personal history of irradiation; Z85.71 Personal history of Hodgkin lymphoma; Z79.899 Other long term (current) drug therapy; J44.0 Chronic obstructive pulmonary disease with (acute) lower respiratory infection; J81.1 Chronic pulmonary edema; C81.90 Hodgkin lymphoma, unspecified, unspecified site; C95.90 Leukemia, unspecified not having achieved remission; D84.9 Immunodeficiency, unspecified; Z20.822 Contact with and (suspected) exposure to COVID-19; H54.7 Unspecified visual loss; I10 Essential (primary) hypertension; K21.9 Gastro-esophageal reflux disease without esophagitis; M19.90 Unspecified osteoarthritis, unspecified site; E87.5 Hyperkalemia; J20.8 Acute bronchitis due to other specified organisms; Z79.52 Long term (current) use of systemic steroids; Z87.891 Personal history of nicotine dependence
CPT/HCPCS: 0240U; 36415; 36600; 71045; 71046; 71250; 71260; 71275; 74177; 80048; 80053; 80202; 81001; 82803; 83605; 83690; 83735; 83880; 84145; 84484; 85025; 86140; 86738; 87040; 87486; 87581; 87633; 87798; 93306; 94640; 94660; 94667; 94668; 94761; 94762; 96361; 96365; 97110; 97116; 97162; 97166; 97530; 97535; 99285; 99232; 99238; A9270-GY; C9113; J1650; J1940; J2543; J2920; J3370; J3490; J7030; J7050; J7512; J7620-GY; Q9967

== ENCOUNTER 2022-05-17 10:15 | Emergency (ER) | payer MEDICARE, BC ==
[2022-05-17 11:00] VITALS: PULSE 86
[2022-05-17 11:12] LABS: ESTIMATED GFR 92 mL/min (>60)
[2022-05-17] MEDS ORDERED: Lidocaine 1% 10 ML MDV INJECT ONE (12:08)
[2022-05-17 13:33] VITALS: BP 113/65
== END 2022-05-17 13:20 | disposition home or self-care (01) ==
LOC: JD.ED 10:15
DX: S22.089A Unspecified fracture of T11-T12 vertebra, initial encounter for closed fracture (principal); S32.131A Minimally displaced Zone III fracture of sacrum, initial encounter for closed fracture; S01.01XA Laceration without foreign body of scalp, initial encounter; I10 Essential (primary) hypertension; J44.9 Chronic obstructive pulmonary disease, unspecified; K21.9 Gastro-esophageal reflux disease without esophagitis; Z79.01 Long term (current) use of anticoagulants; Z79.899 Other long term (current) drug therapy; W18.30XA Fall on same level, unspecified, initial encounter; Y92.002 Bathroom of unspecified non-institutional (private) residence as the place of occurrence of the external cause
CPT/HCPCS: 12002; 36415; 70450; 70450-26; 72131; 72131-26; 72192; 72192-26; 80053; 83735; 83880; 85025; 85610; 99283; 99284; J3490

== ENCOUNTER 2022-07-15 12:03 | Emergency (ER) | payer MEDICARE, BC ==
[2022-07-15 12:40] VITALS: BP 127/61; PULSE 62
== END 2022-07-15 13:30 | disposition home or self-care (01) ==
LOC: JD.ED 12:03
DX: S22.080A Wedge compression fracture of T11-T12 vertebra, initial encounter for closed fracture (principal); M54.50 Low back pain, unspecified; I10 Essential (primary) hypertension; J44.9 Chronic obstructive pulmonary disease, unspecified
CPT/HCPCS: 99282; 99283